=== PATIENT | male | born 2000 ===

== ENCOUNTER 2021-08-06 16:33 | Emergency (ER) | payer OTHER | END 2021-08-06 18:49 | disposition left against medical advice (07) | LOC: ED 16:33 | DX: Z04.1 Encounter for examination and observation following transport accident (principal); Z53.21 Procedure and treatment not carried out due to patient leaving prior to being seen by health care provider; V89.2XXA Person injured in unspecified motor-vehicle accident, traffic, initial encounter; Y93.89 Activity, other specified; Y92.488 Other paved roadways as the place of occurrence of the external cause; Y99.8 Other external cause status ==